=== PATIENT | male | born 1970 | race Caucasian/White ===

== ENCOUNTER 2016-08-11 07:03 | Emergency (ER) | payer OTHER ==
[2016-08-11 07:11] VITALS: BP 128/83; PULSE 90; RESP 18; TEMP 97.9; O2SAT 94
--- NOTE | 2016-08-11 07:35 | EDPHY ---
H & P Time Seen by Provider: 08/11/16 07:18 HPI/ROS: CHIEF COMPLAINT: Arm lesions HISTORY OF PRESENT ILLNESS: Patient is a 45-year-old male who presents emergency department with multiple arm lesions. 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 He took out the trash into broke onto his arms. Now noticed that he has multiple red lesions that are pruritic on his arms bilaterally. This does not involve his hands. He does not have a systemic rash. He denies fevers or chills. REVIEW OF SYSTEMS: My complete review of systems is negative except as mentioned in the HPI. Past Medical/Surgical History: Includes cholecystectomy, gastric bypass, diabetes Social history: The patient denies tobacco Smoking Status: Never smoked Physical Exam: Vitals noted. Afebrile GENERAL: Well-appearing, in no acute distress, alert. HEENT: Eyes normal to inspection, normal pharynx. NECK: Supple. RESPIRATORY: No respiratory distress. CVS: Well perfused. ABDOMEN: No lesions. BACK: No lesion. Normal to inspection, no CVA tenderness. SKIN: Normal color, warm, dry. No pallor. Patient has multiple papular lesions on his forearms bilaterally. There is no involvement of his wrist or hands. There is no web space involvement. There is no significant surrounding erythema. It appears as though the patient has scratched numerous lesions. He has no systemic rash. EXTREMITIES: Normal. No joint swelling.. NEURO/PSYCH: Alert and oriented x3, normal mood and affect. Constitutional: Initial Vital Signs Temperature (C) 36.6 C 08/11/16 07:07 Heart Rate 90 08/11/16 07:07 Respiratory Rate 18 08/11/16 07:07 Blood Pressure 128/83 H 08/11/16 07:07 O2 Sat (%) 94 08/11/16 07:07 O2 Delivery Mode Room Air Allergies/Adverse Reactions: oxymetazoline [From Wilver-Synephrine (phenylephrine)] Allergy (Verified 08/11/16 07:06) phenylephrine [From Wilver-Synephrine (phenylephrine)] Allergy (Verified 08/11/16 07:06) Home Medications: Medication Instructions Recorded B 12 08/11/16 Doxycycline Hyclate 100 mg PO BID 7 Days 08/11/16 Effexor 08/11/16 GLIPIZIDE 08/11/16 Levemir 08/11/16 Metformin HCl 08/11/16 Medical Decision Making ED Course/Re-evaluation: In the emergency department I discussed possible etiologies with the patient. I answered all his questions. At this time he will be treated with doxycycline. I considered treating him for scabies. I had this discussion with the patient. Because it does not involve his hands are webspace he will be treated with doxycycline 1st. If symptoms continue he will follow up with his primary care physician. Patient was given warnings prior to leaving. He will return with worsening symptoms. Differential Diagnosis: My differential includes but is not limited to cellulitis, scabies, Knight- Martín syndrome, scapula skin Departure - Departure Disposition: Home, Routine, Self-Care Clinical Impression: Rash Condition: Good Instructions: Acute Rash (ED) Additional Instructions: Take your entire course of antibiotics. If her rash persists return to her primary care physician for recheck. Referrals: [facility],. [Clinic] - As per Instructions Elli Garza MD [Medical Doctor] - As per Instructions Prescriptions: Doxycycline Hyclate 100 mg PO BID 7 Days
== END 2016-08-11 07:48 | disposition home or self-care (01) ==
DX: R21 Rash and other nonspecific skin eruption (principal); E11.9 Type 2 diabetes mellitus without complications; Z79.84 Long term (current) use of oral hypoglycemic drugs

== ENCOUNTER 2016-10-19 05:47 | Observation (INO) | payer OTHER ==
[2016-10-19] MEDS ORDERED: fentaNYL 100 MCG/2 ML INJ ONE ×3 (06:08→14:36)
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
[2016-10-19] MEDS ORDERED: fentaNYL 100 MCG/2 ML INJ IVP ONE ×2 (06:26→07:34)
[2016-10-19 07:16] LABS: % IMMATURE GRANULYOCYTES 0.3 % (0.0-1.1); ABSOLUTE IMMATURE GRANULOCYTES 0.02 10^3/uL (0.00-0.10); ADD DIFF? NO; ADD MORPH? NO; ADD SCAN? NO; ATYPICAL LYMPHOCYTE FLAG 10 (0-99); FRAGMENT RBC FLAG 0 (0-99); HEMOGLOBIN 13.1 g/dL (13.7-17.5); LEFT SHIFT FLG 0 (0-99); LIPEMIA HEMOLYSIS FLAG 90 (0-99); MEAN CELL HEMOGLOBIN 31.1 pg (27.9-34.1); MEAN CELL HEMOGLOBIN CONCENTR. 35.4 g/dL (32.4-36.7); MEAN CELL VOLUME 87.9 fL (81.5-99.8); MEAN PLATELET VOLUME 10.4 fL (8.7-11.7); PLATELET CLUMPS FLAG 0 (0-99); PLATELET COUNT 193 10^3/uL (150-400); RED BLOOD CELL COUNT 4.21 10^6/uL (4.40-6.38); RED CELL DISTRIBUTION WIDTH 12.2 % (11.5-15.2)
[2016-10-19 07:22] LABS: ANION GAP 10 mEq/L (8-16); CALCIUM 9.2 mg/dL (8.5-10.4); CARBON DIOXIDE 22 mEq/l (22-31); CHLORIDE 107 mEq/L (97-110); CREATININE 0.7 mg/dL (0.7-1.3); GLOMERULAR FILTRATION RATE > 60; GLUCOSE 188 mg/dL (70-100); SODIUM 139 mEq/L (134-144)
[2016-10-19] MEDS ORDERED: IOPAMIDOL (ISOVUE-300) 100 ML BTL ONE ×2 (07:34→07:36)
[2016-10-19] MEDS ORDERED: LORazepam 2 MG/ML INJ IVP ONE (08:51)
[2016-10-19] MEDS ORDERED: ceFAZolin 2 GM/DEXTROSE 100 ML IV ONE (09:56)
[2016-10-19] MEDS ORDERED: HYDROmorphONE/DILAUDID 1 MG/ML SYR IVP PRN (09:56)
[2016-10-19] MEDS ORDERED: LR 1,000 ML IV SCH (10:00)
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
[2016-10-19] MEDS ORDERED: BUPIVACAINE 0.5% 30 ML SDV ONE (12:21)
[2016-10-19] MEDS ORDERED: LR 1,000 ML IV ONE (13:36)
[2016-10-19] MEDS ORDERED: CEFAZOLIN 2 GM/DEXTROSE/100 ML BAG IV ONE (13:38)
[2016-10-19] MEDS ORDERED: MIDAZOLAM 2 MG/2 ML VIAL ONE (14:29)
[2016-10-19] MEDS ORDERED: MIDAZOLAM 2 MG/2 ML VIAL IVP ONE (14:31)
--- NOTE | 2016-10-19 14:33 | PDANEPAE ---
ANE History of Present Illness incarcerated hernia ANE Past Medical History - Pulmonary History Hx Oxygen in Use at Home: No Hx Sleep Apnea: No Sleep Apnea Screening Result - Last Documented: Negative - Endocrine History Hx Diabetes: Yes - Chronic Pain History Chronic Pain: Yes ANE Patient History - Allergies Allergies/Adverse Reactions: amoxicillin Allergy (Verified 10/19/16 10:20) Rash etodolac Allergy (Verified 10/19/16 10:20) Diarrhea phenylephrine Allergy (Verified 10/19/16 10:20) Congestion - Home Medications Home Medications: Insulin Detemir [Levemir] 10 unit SQ HS 08/11/16 [Last Taken Unknown] glipiZIDE [Glipizide] 5 mg PO QID 08/11/16 [Last Taken Unknown] metFORMIN HCL [Metformin HCl] 500 mg PO QID 08/11/16 [Last Taken 10/18/16] ARIPiprazole [Abilify 5 mg (*)] 2.5 mg PO DAILY 10/19/16 [Last Taken Unknown] Albuterol [Proventil Inhaler HFA (*)] 2 puffs IH QID PRN 10/19/16 [Last Taken Unknown] Cetirizine [ZyrTEC 10 mg (*)] 10 mg PO DAILY 10/19/16 [Last Taken Unknown] Fluticasone Nasal [Flonase Nasal [place] (RX)] 2 sprays NASAL DAILY 10/19/16 [ Last Taken Unknown] Multivitamins [Multivitamin (*)] 1 each PO DAILY 10/19/16 [Last Taken Unknown] Prazosin HCl [Minipress 1mg (*)] 1 mg PO HS 10/19/16 [Last Taken Unknown] Sildenafil Citrate [Viagra] 100 mg PO PRN PRN 10/19/16 [Last Taken Unknown] - NPO status NPO Since - Liquids (Date): 10/19/16 NPO Since - Liquids (Time): 03:30 NPO Since - Solids (Date): 10/19/16 NPO Since - Solids (Time): 03:30 - Smoking Hx Smoking Status: Never smoked ANE Labs/Vital Signs - Labs Result Diagrams: 10/19/16 06:00 10/19/16 06:00 - Vital Signs Blood Pressure: 126/89 Heart Rate: 70 Respiratory Rate: 18 O2 Sat (%): 94 Height: 177.8 cm Weight: 70.307 kg ANE Physical Exam - Airway Neck exam: FROM Mallampati Score: Class 1 Mouth exam: normal dental/mouth exam - Pulmonary Pulmonary: no respiratory distress - Cardiovascular Cardiovascular: regular rate and rhythym - ASA Status ASA Status: II
[2016-10-19] MEDS ORDERED: HYDROmorphONE/DILAUDID 2 MG/ML INJ ONE (14:36)
[2016-10-19] MEDS ORDERED: PROPOFOL 200 MG/20 ML VIAL ONE ×2 (14:36→14:44)
[2016-10-19] MEDS ORDERED: ROCURONIUM 50 MG/5 ML VIAL ONE (14:36)
[2016-10-19] MEDS ORDERED: ESMOLOL HCL 100 MG/10 ML VIAL IV ONE (14:57)
[2016-10-19] MEDS ORDERED: fentaNYL 100 MCG/2 ML INJ IVP PRN (15:03)
[2016-10-19] MEDS ORDERED: PROMETHAZINE HCL 25 MG/ML INJ IVP PRN (15:03)
[2016-10-19] MEDS ORDERED: NALOXONE HCL 0.4 MG/ML INJ IVP PRN (15:03)
[2016-10-19] MEDS ORDERED: LABETALOL HCL 50 MG/10 ML SYR IVP PRN (15:03)
[2016-10-19] MEDS ORDERED: DEXAMETHASONE 4 MG/ML VIAL IVP PRN (15:03)
[2016-10-19] MEDS ORDERED: ALBUTEROL 60 PUFFS/8 GM MDI IH PRN (16:28)
--- NOTE | 2016-10-19 16:34 | POSTOPPROG ---
Post Op Note Date of Operation: 10/19/16 Surgeon: Junior Decker Anesthesiologist: Kamlesh Anesthesia: GET(General Endotracheal) Pre-op Diagnosis: Incarcerated umbilical hernia Post-op Diagnosis: same Procedure: Umbilical hernia repair Findings: small subcentimeter defect with incarcerated fat, some necrotic Inf/Abcess present in the surg proc area at time of surgery?: Yes Depth: Deep Incisional (Fascial) EBL: Minimal Specimen(s): hernia contents
[2016-10-19] MEDS: OXYCODONE/APAP 5/325 TAB PO PRN ×2 (18:53→21:08)
[2016-10-19] MEDS ORDERED: metFORMIN HCL 500 MG TAB PO SCH (21:00)
[2016-10-19] MEDS: PRAZOSIN HCL 1 MG CAP PO SCH ×2 (21:01→21:17)
[2016-10-19] MEDS: ALPRAZolam 0.5 MG TAB PO SCH (21:01)
[2016-10-19] MEDS: glipiZIDE 5 MG TAB PO SCH ×2 (21:17→21:54)
[2016-10-20] MEDS: OXYCODONE/APAP 5/325 TAB PO PRN (01:06)
[2016-10-20] MEDS: glipiZIDE 5 MG TAB PO SCH ×2 (05:40→12:11)
[2016-10-20] MEDS ORDERED: IBUPROFEN 600 MG TAB PO PRN (07:46)
[2016-10-20] MEDS: ALPRAZolam 0.5 MG TAB PO SCH (08:19)
[2016-10-20 08:30] VITALS: RESP 14; TEMP 98.1; O2SAT 93
[2016-10-20] MEDS ORDERED: FLUTICASONE NASAL 120 SPRAYS/16 GM MDI EACHNARE SCH (09:00)
[2016-10-20] MEDS ORDERED: CETIRIZINE 10 MG TAB PO SCH (09:00)
[2016-10-20] MEDS ORDERED: MULTIVITAMINS 1 EACH TAB PO SCH (09:00)
[2016-10-20] MEDS ORDERED: ARIPiprazole 5 MG TAB PO SCH (09:00)
[2016-10-20 11:52] VITALS: BP 113/68; PULSE 84
--- NOTE | 2016-10-20 16:15 | GOP ---
[f rep st] OPERATIVE REPORT DATE OF OPERATION: 10/19/2016 SURGEON: Junior eDcker MD SERVICE LEARNING COORDINATOR: None. ANESTHESIA: General endotracheal provided by Aarti Whitlock M.D. PREOPERATIVE DIAGNOSIS: Incarcerated umbilical hernia. POSTOPERATIVE DIAGNOSIS: Incarcerated umbilical hernia. PROCEDURE PERFORMED: Incarcerated umbilical hernia repair. FINDINGS: Small subcentimeter defect through which incarcerated fat was identified, a portion of wh ich was necrotic. This was sent to pathology. No bowel was identified in the hernia sac. The defe ct was repaired primarily. SPECIMENS: Incarcerated hernia sac. ESTIMATED BLOOD LOSS: 5 cc. DESCRIPTION OF PROCEDURE: The patient was greeted in the preoperative suite. Once again, risks, be nefits, and alternatives were discussed. The consent was signed. He was then brought back to the o perative suite, placed on the OR table in the supine position. After all anesthesia machines, inclu ding SCDs, were on and functioning, [facility] time-out was performed. After successful induction of general anesthesia, the patient's abdomen was widely prepped and drape d in a typical sterile fashion. I commenced the procedure by making an infraumbilical curvilinear i ncision and carrying it down through the subcutaneous tissue. I then freed the umbilical stalk from the hernia sac which was just inferior to it and retracted it cranially. Once this was done, I gemini ntified the hernia sac and traced it down to the fascia. The fascial defect was noted to be quite s mall. I was unable to reduce the hernia contents. I opened the hernia sac. It appeared to contain only fat, some of which was necrotic, and there was a small amount of purulent tissue associated wi th this as well. I amputated a portion of this and passed it off to pathology. Once I successfully removed some of the hernia contents, I was able to safely reduce the hernia sac back into the abdominal cavity. I then cleaned the fascial edges clear of any additional adhesions. Again, the fascial defect was about the tip of my pinky. I then proceeded closing it using interr upted 0 Nurolon sutures, noting excellent fascial reapproximation. Once this was done, I infiltrated the area using 0.25% Marcaine. I reapproximated the umbilical sta lk back down to the underlying fascia and closed the skin with running 4-0 Monocryl over which [place]ota suarez was placed. The patient was then extubated in the operative suite and taken to the PACU in satisfactory conditio n. DRAINS: None. COUNTS: All counts were reported as correct x2. /[id number]/MODL
== END 2016-10-20 12:25 | disposition home or self-care (01) ==
LOC: F3E 10:57
PROVIDERS: ADMIT Surgery; ATTEND Surgery
PROC: 0WQF0ZZ Repair Abdominal Wall, Open Approach (ICD-10-PCS; principal; 2016-10-19 13:45)
DX: K42.0 Umbilical hernia with obstruction, without gangrene (principal); K86.9 Disease of pancreas, unspecified; E11.9 Type 2 diabetes mellitus without complications; N20.0 Calculus of kidney; S22.32XD Fracture of one rib, left side, subsequent encounter for fracture with routine healing; E66.01 Morbid (severe) obesity due to excess calories; F43.10 Post-traumatic stress disorder, unspecified; Z98.84 Bariatric surgery status
CPT/HCPCS: 49587; 74177; 96374; 96375; 96376; 99285; G0378; J0690; J1170; J2060; J2250; J2704; J3010; Q9967